=== PATIENT | male | born 1985 | race Caucasian/White ===

== ENCOUNTER 2022-09-22 21:49 | Emergency (ER) | payer MEDICAID, OTHER ==
[~2022-09-22] VITALS: Ht 170.2 cm; Wt 73.0 kg
[~2022-09-22 21:49] MED LIST: CARI350T28 PO; HYDR-523 PO
[2022-09-22 22:17] VITALS: BP 108/67
== END 2022-09-22 23:29 | disposition home or self-care (01) ==
LOC: ER 21:54
DX: F15.10 Other stimulant abuse, uncomplicated (principal); F41.9 Anxiety disorder, unspecified; J45.909 Unspecified asthma, uncomplicated; F32.9 Major depressive disorder, single episode, unspecified; R56.9 Unspecified convulsions; Z88.6 Allergy status to analgesic agent
CPT/HCPCS: 99283

== ENCOUNTER 2022-09-24 00:36 | Emergency (ER) | payer MEDICAID, OTHER ==
[~2022-09-24] VITALS: Ht 175.3 cm; Wt 78.2 kg
[2022-09-24 00:53] VITALS: BP 114/66
[2022-09-24] MEDS ORDERED: ACETAMINOPHEN 325MG TABLET PO STA (03:30)
[2022-09-24] MEDS ORDERED: LORAZEPAM 1MG TABLET PO ONE (03:30)
[2022-09-24] MEDS ORDERED: LORA-250 PO ×3 (04:56→06:35)
[2022-09-24] MEDS ORDERED: NAPR-681 PO ×3 (04:56→06:35)
== END 2022-09-24 05:08 | disposition home or self-care (01) ==
LOC: ER 00:36
DX: F41.9 Anxiety disorder, unspecified (principal); J45.909 Unspecified asthma, uncomplicated; Z88.6 Allergy status to analgesic agent; Z98.890 Other specified postprocedural states
CPT/HCPCS: 72100; 99283

== ENCOUNTER 2022-09-27 06:44 | Emergency (ER) | payer MEDICAID ==
[~2022-09-27] VITALS: Ht 175.3 cm; Wt 82.4 kg
[~2022-09-27 06:44] MED LIST changes: +LORA-250 PO; +NAPR-681 PO
[2022-09-27 06:50] VITALS: BP 111/70
== END 2022-09-27 11:02 | disposition left against medical advice (07) ==
LOC: ER 06:44
DX: Z53.21 Procedure and treatment not carried out due to patient leaving prior to being seen by health care provider (principal)

== ENCOUNTER 2022-10-19 09:55 | Emergency (ER) | payer MEDICAID ==
[~2022-10-19] VITALS: Ht 167.6 cm; Wt 75.0 kg
[2022-10-19 10:31] VITALS: BP 128/81
== END 2022-10-19 14:13 | disposition left against medical advice (07) ==
LOC: ER 09:55
DX: Z53.21 Procedure and treatment not carried out due to patient leaving prior to being seen by health care provider (principal)

== ENCOUNTER 2022-10-20 17:40 | Emergency (ER) | payer MEDICAID, OTHER ==
[~2022-10-20] VITALS: Ht 175.3 cm; Wt 75.0 kg
[2022-10-20 17:46] VITALS: BP 0/0
== END 2022-10-20 17:56 | disposition left against medical advice (07) ==
LOC: ER 17:48
DX: Z53.21 Procedure and treatment not carried out due to patient leaving prior to being seen by health care provider (principal); F41.9 Anxiety disorder, unspecified; J45.909 Unspecified asthma, uncomplicated; Z88.6 Allergy status to analgesic agent

== ENCOUNTER 2022-10-23 22:12 | Emergency (ER) | payer OTHER ==
[~2022-10-23] VITALS: Ht 175.3 cm; Wt 80.0 kg
[2022-10-23 22:19] VITALS: BP 118/74
[2022-10-24] MEDS ORDERED: ACETAMINOPHEN 325MG TABLET PO STA (00:50)
[2022-10-24] MEDS ORDERED: LORAZEPAM 1MG TABLET PO ONE (01:00)
[2022-10-24] MEDS ORDERED: ACET-2708 PO (03:16)
== END 2022-10-24 03:25 | disposition home or self-care (01) ==
LOC: ER 22:24
DX: J02.9 Acute pharyngitis, unspecified (principal); F41.9 Anxiety disorder, unspecified; J45.909 Unspecified asthma, uncomplicated
CPT/HCPCS: 87070; 87430; 99283

== ENCOUNTER 2022-11-08 15:13 | Emergency (ER) | payer OTHER ==
[~2022-11-08] VITALS: Ht 177.8 cm; Wt 80.0 kg
[~2022-11-08 15:13] MED LIST changes: +ACET-2708 PO
[2022-11-08 15:15] VITALS: BP 114/54
[2022-11-08] MEDS ORDERED: LORAZEPAM 0.5MG TABLET PO ONE (15:30)
== END 2022-11-08 18:20 | disposition home or self-care (01) ==
LOC: ER 18:18
DX: Z76.0 Encounter for issue of repeat prescription (principal); F41.9 Anxiety disorder, unspecified; J45.909 Unspecified asthma, uncomplicated; Z88.8 Allergy status to other drugs, medicaments and biological substances
CPT/HCPCS: 99283

== ENCOUNTER 2022-11-13 16:54 | Emergency (ER) | payer MEDICAID, OTHER ==
[~2022-11-13] VITALS: Ht 162.6 cm; Wt 80.0 kg
[2022-11-13] MEDS ORDERED: SERT25TA MT (18:44)
[2022-11-13] MEDS ORDERED: GABA-529 MT (18:44)
[2022-11-13] MEDS ORDERED: CELE100C MT (18:44)
[2022-11-13] MEDS ORDERED: DIAZEPAM 5 MG TABLET PO ONE (18:45)
[2022-11-13] MEDS ORDERED: NAPROXEN 500MG TABLET PO NR (19:00)
[2022-11-13] MEDS: NAPROXEN 375MG TABLET PO ONE (19:01)
[2022-11-13 19:29] VITALS: BP 121/62
== END 2022-11-13 19:05 | disposition home or self-care (01) ==
LOC: ER 17:02
DX: F32.9 Major depressive disorder, single episode, unspecified (principal); F41.9 Anxiety disorder, unspecified; J45.909 Unspecified asthma, uncomplicated; Z88.6 Allergy status to analgesic agent
CPT/HCPCS: 99283

== ENCOUNTER 2022-12-16 16:43 | Emergency (ER) | payer MEDICAID, OTHER ==
[~2022-12-16] VITALS: Ht 175.3 cm; Wt 77.0 kg
[~2022-12-16 16:43] MED LIST changes: +CELE100C MT; +GABA-529 MT; +SERT25TA MT
[2022-12-16 16:51] VITALS: BP 111/77
[2022-12-16] MEDS ORDERED: ACET-2708 MT (18:14)
[2022-12-16] MEDS ORDERED: ONDA4TAB50 MT (18:14)
[2022-12-16] MEDS ORDERED: ONDANSETRON 4MG ODT PO ONE (18:15)
[2022-12-16] MEDS ORDERED: CLONIDINE 0.1MG TABLET PO ONE (18:15)
[2022-12-16] MEDS ORDERED: ACETAMINOPHEN 325MG TABLET PO ONE (18:15)
== END 2022-12-16 18:42 | disposition home or self-care (01) ==
LOC: ER 16:43
DX: F11.23 Opioid dependence with withdrawal (principal); F41.9 Anxiety disorder, unspecified; J45.909 Unspecified asthma, uncomplicated; F32.9 Major depressive disorder, single episode, unspecified; Z88.6 Allergy status to analgesic agent
CPT/HCPCS: 99284; Q0162

== ENCOUNTER 2023-01-22 04:13 | Emergency (ER) | payer OTHER ==
[~2023-01-22] VITALS: Ht 175.3 cm; Wt 74.0 kg
[~2023-01-22 04:13] MED LIST changes: +ACET-2708 MT; +ONDA4TAB50 MT
[2023-01-22 05:09] LABS: BASOPHILS % 0.6 % (0.0-2.0); EOSINOPHILS % 8.2 % (0.0-5.0); HEMATOCRIT. 38.4 % (42.0-52.0); LYMPHOCYTES % 36.8 % (20.0-50.0); MEAN CORPUSCULAR HEMOGLOBIN 27.3 pg (28.0-32.0); MEAN CORPUSCULAR VOLUME 81.2 fL (80.0-94.0); MEAN PLATELET VOLUME 7.8 fl (7.4-10.4); MONOCYTES % 12.2 % (2.0-8.0); NEUTROPHILS % 42.2 % (40.0-76.0); PLATELET 240 x1000/uL (130-400); RED BLOOD CELL COUNT 4.74 mill/uL (4.7-6.1); RED CELL DISTRIBUTION WIDTH 15.5 % (11.6-14.6)
[2023-01-22 05:26] LABS: CHLORIDE 107 mEq/L (98-107)
[2023-01-22 05:39] LABS: ETHANOL BLOOD < 10 mg/dL
[2023-01-22 09:32] VITALS: BP 118/74
== END 2023-01-22 09:32 | disposition home or self-care (01) ==
LOC: ER 04:13
DX: R07.89 Other chest pain (principal); J45.909 Unspecified asthma, uncomplicated; Z98.890 Other specified postprocedural states
CPT/HCPCS: 36415; 71045; 80053; 80320; 83880; 84484; 85025; 93005; 99285; G0480

== ENCOUNTER 2023-06-21 00:38 | Emergency (ER) | payer OTHER ==
[~2023-06-21] VITALS: Ht 175.3 cm; Wt 78.9 kg
[2023-06-21 00:46] VITALS: BP 130/83; TEMP 98.2; O2SAT 97
[2023-06-21 00:47] VITALS: PULSE 97; RESP 16
== END 2023-06-21 03:53 | disposition left against medical advice (07) ==
LOC: ER 00:38
DX: Z76.0 Encounter for issue of repeat prescription (principal); J45.909 Unspecified asthma, uncomplicated
CPT/HCPCS: 99281

== ENCOUNTER 2023-08-09 00:42 | Emergency (ER) | payer OTHER ==
[2023-08-09] MEDS ORDERED: ALPR2TAB2 MT ×2 (02:20→02:28)
[2023-08-09 02:39] VITALS: BP 132/78; PULSE 80; RESP 16; TEMP 98
== END 2023-08-09 02:40 | disposition home or self-care (01) ==
LOC: ER 01:38
DX: F41.9 Anxiety disorder, unspecified (principal); J45.909 Unspecified asthma, uncomplicated; Z88.6 Allergy status to analgesic agent; Z79.899 Other long term (current) drug therapy
CPT/HCPCS: 99281

== ENCOUNTER 2024-06-15 05:26 | Emergency (ER) | payer MEDICAID, OTHER ==
[~2024-06-15] VITALS: Ht 175.3 cm; Wt 73.0 kg
[~2024-06-15 05:26] MED LIST changes: +ALPR2TAB2 MT
[2024-06-15 05:39] VITALS: BP 130/94; PULSE 100; RESP 20; TEMP 98.4; O2SAT 100
[2024-06-15] MEDS ORDERED: DIAZ5TAB4 MT (09:30)
[2024-06-15] MEDS ORDERED: ALPR2TAB97 MT ×2 (09:45→09:47)
== END 2024-06-15 10:00 | disposition home or self-care (01) ==
LOC: ER 05:26
DX: F41.9 Anxiety disorder, unspecified (principal); J45.909 Unspecified asthma, uncomplicated; Z88.6 Allergy status to analgesic agent; Z79.899 Other long term (current) drug therapy
CPT/HCPCS: 99283; Z7610 ×3

== ENCOUNTER 2024-06-20 16:55 | Emergency (ER) | payer MEDICAID ==
[~2024-06-20] VITALS: Ht 175.3 cm; Wt 75.0 kg
[~2024-06-20 16:55] MED LIST changes: +ALPR2TAB97 MT
[2024-06-20 17:46] VITALS: BP 117/54; PULSE 67; RESP 12; TEMP 98.3; O2SAT 97
[2024-06-20] MEDS: LORAZEPAM 1MG TABLET PO ONE (19:01)
== END 2024-06-20 19:06 | disposition home or self-care (01) ==
LOC: ER 16:55
DX: F41.9 Anxiety disorder, unspecified (principal); J45.909 Unspecified asthma, uncomplicated; Z88.6 Allergy status to analgesic agent; Z79.899 Other long term (current) drug therapy
CPT/HCPCS: 99281